=== PATIENT | female | born 1965 | race Caucasian/White ===

== ENCOUNTER 2016-10-21 10:36 | Emergency (ER) | payer BC ==
[2016-10-21] MEDS ORDERED: KETOROLAC 60 MG/2 ML VIAL IM ONE (14:16)
== END 2016-10-21 14:56 | disposition home or self-care (01) ==
LOC: ER 10:36
DX: M79.652 Pain in left thigh (principal); M25.562 Pain in left knee
CPT/HCPCS: 85379; 96372